=== PATIENT | male | born 1945 | race Caucasian/White ===

== ENCOUNTER 2017-06-15 06:15 | Day surgery (SDC) | payer MEDICARE ==
[2017-06-07 15:47] VITALS: BMI 27.3
--- NOTE | 2017-06-14 15:08 | HP ---
HISTORY AND PHYSICAL DATE OF SURGERY: 06/15/2017 Mu Brewer is a 72-year-old patient seen with progressive left shoulder pain. After treatment options discussed, he elected to proceed with arthroscopy. Consent was obtained. Preoperative medical clearance was provided by Dr. Alva. PAST MEDICAL HISTORY: Hyperlipidemia. PAST SURGICAL HISTORY: Right shoulder arthroscopy. DAILY MEDICATIONS: Lipitor. ALLERGIES: None. SOCIAL HISTORY: Patient denies tobacco use. PHYSICAL EVALUATION: Left shoulder, flexion 150 degrees, abduction 120 degrees, external rotation is 50 degrees with weakness. There is tenderness along the anterolateral acromion and rotator cuff insertion site. Impingement positive at 90 degrees. Distal neurovascular exam is intact. RADIOGRAPHS: Left shoulder reveal a type 2 anterior acromion, evidence for acromioclavicular joint osteoarthritis and cystic changes of the tuberosity. An MRI of the left shoulder revealed a large rotator cuff tear. IMPRESSION: Left shoulder impingement with rotator cuff tear and acromioclavicular joint osteoarthritis. PLAN: 1. Left shoulder arthroscopy with subacromial decompression, probable arthroscopic rotator cuff repair. 2. Probable Kim procedure. 3. Probable biceps tenotomy and debridement. MMODL / IJN: [id number] /
[~2017-06-15 06:15] MED LIST: DEXAMETHASONE SOD PHOSPHATE 10 MG/ML 1 ML VIAL IV ONE; HYDROmorphone 1 MG/ML 1 ML SYRINGE IVP PRN; LACTATED RINGERS 1,000 ML IV SCH; MIDAZOLAM 2 MG/2 ML VIAL IV PRN; ONDANSETRON 4 MG/2 ML VIAL IVP ONE; ceFAZolin 2 GM in SODIUM CHLORIDE 0.9% 100 ML IVPB ONE
[2017-06-15] MEDS ORDERED: LIDOCAINE 1% 20 ML VIAL (10MG/ML) FOR IV START INTRADERMA ONE (06:36)
[2017-06-15 06:45] LABS: Glucose,Whole Blood 131 mg/dL (75-99)
[2017-06-15] MEDS ORDERED: fentaNYL (PF) 50 MCG/ML 2 ML AMP IV ONE (07:30)
[2017-06-15] MEDS ORDERED: LACTATED RINGERS 1,000 ML IV ONE ×2 (07:33→08:45)
--- NOTE | 2017-06-15 07:49 | P.ONQ ---
Anesthesiology Proc Note - PNB - Peripheral Nerve Block Performed Left Interscalene Single Time Out Performed: Yes Indication: Acute Post-Operative Pain, Analgesia Specifically requested for management of pain by DrPenelope: Cortes Spear Sedation Type: Sedate with meaningful contact maintained Preparation: Sterile Prep Position: Supine Catheter: None Needle Types: Other (see comment) (pajunk) Needle Size: 50mm (2") Needle Gauge: 21 Technique: Ultrasound Injectate: Other (see comment) (1% lido, 0.25% ropiv, 20cc) Adjunct: Epinephrine (see comment for dilution ratio) (1:200,000) Blood Aspirated: No Pain Paresthesia on Injection Noted: No Resistance on Injection: Normal Events: Uneventful and Well Tolerated
[2017-06-15] MEDS ORDERED: PROPOFOL 10 MG/ML 20 ML VIAL IV ONE (08:05)
[2017-06-15] MEDS ORDERED: LIDOCAINE 1% INJ 10MG/ML (20 ML MDV) ONE (08:05)
[2017-06-15] MEDS ORDERED: ePHEDrine SULFATE/0.9% NACL/PF 50 MG/5 ML SYRINGE IV ONE (08:05)
[2017-06-15] MEDS ORDERED: PHENYLEPHRINE-0.9% NACL SYG 1 MG/10 ML SYRINGE ONE (08:05)
[2017-06-15] MEDS ORDERED: SUCCINYLCHOLINE CHLORIDE 100 MG/5 ML SYR IV ONE (08:05)
[2017-06-15] MEDS ORDERED: MIDAZOLAM 2 MG/2 ML VIAL ONE (08:05)
[2017-06-15] MEDS ORDERED: fentaNYL (PF) 50 MCG/ML 2 ML AMP ONE (08:05)
--- NOTE | 2017-06-15 11:05 | P.OP ---
Date of Procedure: 06/15/17 Preoperative Diagnosis: Left shoulder impingement with rotator cuff tear Postoperative Diagnosis: 1. Left shoulder large retracted rotator cuff tear 2. Left shoulder impingement 3. Left shoulder acromioclavicular joint osteoarthritis 4. Left shoulder partial long head biceps tendon tear 5. Left shoulder superficial labral tear Procedure(s) Performed: 1. Left shoulder arthroscopic rotator cuff repair 2. Left shoulder arthroscopic subacromial decompression 3. Left shoulder arthroscopic Kim procedure 4. Left shoulder arthroscopic biceps tenotomy 5. Left shoulder arthroscopic debridement labral tear Implants: 6-valeris peek anchors Anesthesia: GETA, regional (Shoulder block) Surgeon: Cortes Spear Online Education Manager #1: Flaco Canales Estimated Blood Loss (ml): 50 Pathology: none sent Condition: stable Disposition: PACU Indications for Procedure: 72-year-old patient seen with progressive left shoulder pain. After treatment options were discussed, he elected to proceed with arthroscopy. Operative Findings: see description of procedure Description of Procedure: Patient underwent a shoulder block by department of anesthesia. The patient was then taken to the operative suite. The patient underwent a general anesthetic by the department of anesthesia. The patient was placed into a lateral position and secured. There was appropriate padding of the bony prominence. Left shoulder was then prepped and draped in normal sterile orthopedic fashion. We placed the extremity in 10 pounds of longitudinal traction. A posterior incision was now made for a posterior working portal site. The trocar and cannula were inserted into the glenohumeral joint. Arthroscopy was initiated. Spinal needle was now inserted anteriorly, to ascertain the anterior working portal site. An incision was now made in that area, a trocar was inserted followed by a probe. There were grade 2/3 chondromalacia changes of the glenoid. There were grade 1, changes of the humeral head. No osteochondral tears were present. Superficial tearing of the anterior/superior labrum was present. Partial tearing long head biceps tendon was noted. There was an obvious massive rotator cuff tear that I could clearly visualized from the glenohumeral side. I performed an arthroscopic biceps tenotomy. I debrided that labral tear down to stable tissue. The residual labrum was probed and found to be stable. Instruments now removed from glenohumeral joint. Utilizing the posterior working portal site, the trocar and cannula were inserted into the subacromial space. Arthroscopy initiated. I made an incision 2 fingerbreadths lateral to the acromion. I introduced my trocar followed by my ArthroCare ablator. I now began ablating thick subacromial bursal tissue, which exposed the undersurface of the anterior acromion. This was diminished subacromial space. There was a very prominent anterior acromion. A motorized bur was introduced and a subacromial decompression was performed. I also excised some osteophytes off the inferior aspect of the distal clavicle. The AC joint was visualized and noted to be fairly arthritic. Our motorized bur was introduced in the anterior portal site and a Kim procedure was performed without difficulty, decompressing the AC joint nicely. I turned my attention to the rotator cuff. There was a massive retracted rotator cuff tear present. It measured about 3.5-4 cm was retracted beyond the glenoid. At this point I debrided the margins. I began freeing up the tendon until I could get over the footprint. I abraded the footprint with a motorized bur. I created 2 additional assessory portal sites off the anterior lateral and posterior lateral acromion. I introduced 3 medial row anchors with 2 sutures each. I now passed all 8 limbs of suture through good bites of rotator cuff tendon. I now crisscrossed the sutures and pull the tendon over the repair site securing it laterally with an additional 3 anchors. All suture limbs were clipped. The repair was probed and found to be stable. We had good compression of the tendon along the entire footprint. I injected 1 mL Allogen intra-articular. Instruments now removed from the portal sites. All portal sites were approximated with nylon suture. Sterile dressings were applied followed by a slingshot immobilizer. Cory MATHIS assisted with the procedure. The patient was awakened, transferred to a bed, and taken to recovery in stable condition.
[2017-06-15 11:13] VITALS: TEMP 96.8
[2017-06-15 12:28] VITALS: BP 122/73; PULSE 73; RESP 16
== END 2017-06-15 12:55 | disposition home or self-care (01) ==
LOC: OR 06:15
PROVIDERS: ATTEND Orthopaedic Surgery
DX: M75.102 Unspecified rotator cuff tear or rupture of left shoulder, not specified as traumatic (principal); M75.42 Impingement syndrome of left shoulder; M19.012 Primary osteoarthritis, left shoulder; S46.112A Strain of muscle, fascia and tendon of long head of biceps, left arm, initial encounter; S43.402A Unspecified sprain of left shoulder joint, initial encounter; X58.XXXA Exposure to other specified factors, initial encounter; M94.28 Chondromalacia, other site; M25.712 Osteophyte, left shoulder; E78.5 Hyperlipidemia, unspecified; I10 Essential (primary) hypertension; E11.9 Type 2 diabetes mellitus without complications; Z79.84 Long term (current) use of oral hypoglycemic drugs; Z79.82 Long term (current) use of aspirin; Z79.899 Other long term (current) drug therapy
CPT/HCPCS: 64415; 84132; 29826; 29827; 29824; C1894; C1713; C1765; J2250; J1100; J0690; J2405; J2001; J3010; J2370; J0330; J2704

== ENCOUNTER → 2019-01-11 | Outpatient (CLI) | payer MEDICARE | END | disposition home or self-care (01) | LOC: LABPAT 14:09 | PROVIDERS: ATTEND Orthopaedic Surgery | DX: Z01.812 Encounter for preprocedural laboratory examination (principal) | CPT/HCPCS: 87070 ==

== ENCOUNTER 2019-01-22 05:46 | Inpatient (IN) | payer MEDICARE ==
--- NOTE | 2019-01-21 12:06 | HP ---
HISTORY AND PHYSICAL REASON FOR ADMISSION: Surgery scheduled for 01/22/2019 Mu Brewer is a 73-year-old patient seen with symptomatic left knee osteoarthritis. After treatment options were discussed, he elected to proceed with left total knee arthroplasty. Consent regarding the procedure was obtained. Medical clearance was provided by Dr. Roach. PAST MEDICAL HISTORY: Hypercholesterolemia. PAST SURGICAL HISTORY: Right shoulder arthroscopy. DAILY MEDICATIONS: None reported. ALLERGIES: NONE KNOWN. SOCIAL HISTORY: Denies current tobacco use. PHYSICAL EXAMINATION: Evaluation of the left knee range of motion is 0 to 120 degrees. There is a mild effusion present. Tenderness along the medial joint line. Crepitus along the medial patellofemoral femoral compartments with range of motion. Pain with patellofemoral compression. Ligaments stable. Hip rotation without pain. Distal neurovascular exam intact. RADIOGRAPHS: Radiographs of the left knee reveal severe medial and moderate patellofemoral compartment osteoarthritis. IMPRESSION: 1. Left knee osteoarthritis. 2. Hyperlipidemia. PLAN: Left total knee arthroplasty. Surgery scheduled for 01/22/2019. MMODL / IJN: [id number] /
[~2019-01-22 05:46] MED LIST changes: -DEXAMETHASONE SOD PHOSPHATE 10 MG/ML 1 ML VIAL IV ONE; -HYDROmorphone 1 MG/ML 1 ML SYRINGE IVP PRN; -LACTATED RINGERS 1,000 ML IV SCH; +LIDOCAINE 1% 20 ML VIAL (10MG/ML) FOR IV START INTRADERMA PRN; +MIDAZOLAM (PF) 2 MG/2 ML VIAL IV PRN; -MIDAZOLAM 2 MG/2 ML VIAL IV PRN; -ONDANSETRON 4 MG/2 ML VIAL IVP ONE; +ONDANSETRON 4 MG/2 ML VIAL IVP PRN; +SCOPOLAMINE 1.5MG/72HR PATCH TRANSDERM ONE; +TRANEXAMIC ACID 1,000 MG in SODIUM CHLORIDE 0.9% 100 ML IVPB ONE; -ceFAZolin 2 GM in SODIUM CHLORIDE 0.9% 100 ML IVPB ONE; +ceFAZolin IN SWFI 2 GM/20 ML SYRINGE IVP ONE; +fentaNYL (PF) 50 MCG/ML 2 ML AMP IV PRN
[2019-01-22] MEDS ORDERED: LIDOCAINE 1% 20 ML VIAL (10MG/ML) FOR IV START INTRADERMA PRN (06:01)
[2019-01-22] MEDS ORDERED: DEXAMETHASONE SOD PHOSPHATE 10 MG/ML 1 ML VIAL IV ONE (06:01)
[2019-01-22] MEDS ORDERED: ONDANSETRON 4 MG/2 ML VIAL IVP ONE (06:01)
[2019-01-22] MEDS ORDERED: fentaNYL (PF) 50 MCG/ML 2 ML AMP IV PRN (06:01)
[2019-01-22] MEDS ORDERED: MIDAZOLAM (PF) 2 MG/2 ML VIAL IV PRN (06:01)
[2019-01-22] MEDS: ACETAMINOPHEN TAB 500 MG TAB PO ONE ×2 (06:20→10:15)
[2019-01-22] MEDS: MELOXICAM 7.5 MG TAB PO ONE ×2 (06:21→10:16)
[2019-01-22 06:44] LABS: Glucose,Whole Blood 139 mg/dL (75-99)
[2019-01-22] MEDS: LACTATED RINGERS 1,000 ML IV SCH ×5 (06:46→16:12)
[2019-01-22] MEDS: ONDANSETRON 4 MG/2 ML VIAL IVP ONE ×2 (07:01→10:14)
[2019-01-22] MEDS: DEXAMETHASONE SOD PHOSPHATE 10 MG/ML 1 ML VIAL IV ONE ×2 (07:01→10:14)
[2019-01-22] MEDS ORDERED: ROPIVACAINE 1,100 MG, SODIUM CHLORIDE 0.9% 500 ML 330 ML MISCELLANE PRN ×2 (07:16)
--- NOTE | 2019-01-22 07:16 | P.ONQ ---
Anesthesiology Proc Note - PNB - Peripheral Nerve Block Performed Left Adductor Canal Infusion Time Out Performed: Yes Procedure Start Time: 06:58 Procedure Stop Time: 07:09 Indication: Acute Post-Operative Pain, Requested by physician (Dr Spear) Sedation Type: Sedate with meaningful contact maintained Preparation: Sterile Dressing Position: Supine Catheter: Indwelling Needle Types: On-Q Needle Size: 50mm (2"), 100mm (4") Needle Gauge: 20 Technique: Ultrasound Injectate: 0.5% Ropivacaine (see comment for volume) (30 mls) Blood Aspirated: No Pain Paresthesia on Injection Noted: No Resistance on Injection: Normal Events: Uneventful and Well Tolerated
[2019-01-22] MEDS ORDERED: TRANEXAMIC ACID 1,000 MG/10 ML VIAL ONE (07:24)
[2019-01-22] MEDS ORDERED: MIDAZOLAM 2 MG/2 ML VIAL ONE (07:24)
[2019-01-22] MEDS ORDERED: fentaNYL (PF) 50 MCG/ML 2 ML AMP ONE (07:24)
[2019-01-22] MEDS ORDERED: SODIUM CHLORIDE 0.9% 100 ML BAG ONE (07:24)
[2019-01-22] MEDS ORDERED: ceFAZolin IN SWFI 2 GM/20 ML SYRINGE IVP ONE (07:31)
[2019-01-22] MEDS ORDERED: ROPIVACAINE 246.25 MG, EPINEPHrine 0.5 MG, KETOROLAC 30 MG, cloNIDine HCL/PF 80 MCG, WA... MISCELLANE ONE ×5 (07:39)
[2019-01-22] MEDS ORDERED: LACTATED RINGERS 1,000 ML IV ONE (07:55)
[2019-01-22] MEDS ORDERED: CLINDAMYCIN 1,800 MG in SODIUM CHLORIDE 0.9% IRRIGATIO 3,000 ML IRRIGATION ONE (08:07)
[2019-01-22] MEDS ORDERED: HYDROmorphone 0.5 MG/0.5 ML SYRINGE IVP PRN ×3 (09:30)
[2019-01-22] MEDS ORDERED: NALOXONE 0.4 MG/ML 1 ML VIAL IV PRN (09:30)
[2019-01-22] MEDS ORDERED: traMADol 50 MG TAB PO PRN (09:30)
[2019-01-22] MEDS ORDERED: Acetaminophen-Codeine 300-30mg TAB PO PRN (09:30)
[2019-01-22] MEDS ORDERED: ONDANSETRON 4 MG/2 ML VIAL IVP PRN (09:30)
--- NOTE | 2019-01-22 09:30 | P.OP ---
Date of Procedure: 01/22/19 Preoperative Diagnosis: Left knee osteoarthritis Postoperative Diagnosis: Left knee osteoarthritis Procedure(s) Performed: Left total knee arthroplasty Implants: 1. Depuy attune size 7 left cruciate-retaining cemented femur 2. Depuy attune size 7 fixed-bearing cemented tibial baseplate 3. Depuy attune size 7 fixed bearing cruciate retaining polyethylene 5 mm tibial insert 4. Depuy attune 41 mm all polyethylene cemented patella Anesthesia: regional (Adductor canal catheter), local, spinal Surgeon: Cortes Spear Commercial Technician #1: Flaco Canales Estimated Blood Loss (ml): 50 Pathology: other (Bone) Condition: stable Disposition: PACU Indications for Procedure: 73-year-old patient seen with symptomatic left knee osteoarthritis. After having treatment options discussed, he elected to proceed with total knee arthro plasty. Operative Findings: See description of procedure Description of Procedure: Patient was taken to the operative suite after having an adductor canal catheter placed by the department of anesthesia for postoperative pain management. Patient underwent a spinal anesthetic by the department of anesthesia. Patient was given preoperative IV intake antibiotics and TXA. A well-padded tourniquet was placed about the left lower extremity. The lower extremity was then prepped and draped in the normal sterile orthopedic fashion. The extremity was elevated, a tourniquet was insufflated to 300. A standard anterior incision was made sharply through skin. Dissection was taken down through the subcutaneous soft tissues down to the extensor mechanism. A medial arthrotomy was performed, patella was everted and knee was flexed. There was advanced osteoarthritis noted. I introduced my distal intramedullary femoral drill. I then introduced the distal femoral cutting jig. Cory MATHIS secured the cutting jig with 2 pins. I held retractors in position while Cory MATHIS performed the distal femoral resection through the guide area we now removed her distal femoral cutting guide. We now placed our 4-in-1 femoral cutting block and positioned and it was secured with 2 pins by Cory MATHIS while I held the block in position. The distal femoral finishing was now completed. A proximal tibial cutting guide was positioned. I held the guide in the appropriate position with both hands well Cory MATHIS inserted stabilizing pins into the guide. Proximal tibial cut was made. We now placed a trial femoral component into position, along with an appropriate size tibial tray and insert. We now took the knee through range of motion and had full extension good flexion and good overall soft tissue balance noted. The patella was everted and stabilized with 2 towel clips held by Cory MATHIS while I performed a flush with patellar quad tendon utilizing a fresh sawblade. We templated the patella, appropriate drill holes were made. An appropriate trial patella was positioned, knee was taken through full range of motion with the patella tracking very nicely. The trial patella was removed. Drill holes were made through the femoral component. All trial components were removed after marking off the appropriate rotation of the tibia. Retractors were now positioned along the proximal tibia. An appropriate keel punch was made with the appropriate size tibial guide by myself on Cory MATHIS assisted by holding retractors. At this point appropriate size implants were chosen and opened. The joint was irrigated copiously with pulse lavage mechanical irrigation. The posterior capsule was infiltrated with local analgesic. The wound was irrigated with pulse lavage mechanical irrigation. We mixed antibiotic methylmethacrylate. We placed the knee into flexion. We placed multiple retractors assisted by Cory MATHIS to expose the proximal tibia. Once the methyl methacrylate was ready, the tibial component was cemented into place removing any excess methylmethacrylate form by both myself and Cory MATHIS. The femoral component was cemented into place removing the removing any excess methylmethacrylate performed by both myself and Cory MATHIS. We then inserted the appropriate size polyethylene tibial insert. We made sure that it was locked into position. We took the knee into full extension, and then back in a flexion making sure we had removed any excess methylmethacrylate. The patellar component was then cemented down and secured with clamp. Excess methylmethacrylate removed. We kept the knee in full extension, patellar clamp in position until methylmethacrylate had hardened. Once it had hardened the patellar clamp was removed. The knee was taken through full range of motion. The patella tracked nicely. There was good soft tissue balancing. The tourniquet was now released. Additional hemostasis was achieved via electrocautery. A second gram of TXA was given. The wound again was irrigated with pulse lavage mechanical irrigation. The superficial soft tissues were infiltrated local analgesic. The extensor mechanism was repaired with Vicryl. We checked the repair with range of motion and it was stable. The subcutaneous soft tissues were repaired with Vicryl in layers. The skin was approximated with pernio/Dermabond. Sterile dressings were applied followed by loose web roll and Ike bandage. The patient was transferred to a bed, and taken to recovery in stable and satisfactory condition. Cory MATHIS assisted with this complex procedure.
--- NOTE | 2019-01-22 10:34 | XR ---
EXAMINATION TYPE: XR knee limited LT DATE OF EXAM: 01/22/2019 CLINICAL HISTORY: Left knee pain and arthritis status post total knee replacement. TECHNIQUE: Portable AP and crosstable lateral views of the left knee are obtained immediately postop eratively. COMPARISON: None FINDINGS: Metallic hardware from total left knee arthroplasty is seen and appears satisfactory in al ignment and position. There is evidence of recent surgery with diffuse subcutaneous gas and soft tis chuck swelling noted. Posterior vascular calcification distal SFA is noted. IMPRESSION: METALLIC HARDWARE FROM TOTAL LEFT KNEE ARTHROPLASTY IS SATISFACTORY IN ALIGNMENT.
[2019-01-22 11:28] VITALS: BMI 27.8
--- NOTE | 2019-01-22 14:31 | P.CONS ---
History of Present Illness - Reason for Consult Consult date: 01/22/19 (Consult from Dr. Spear) medical management Requesting physician: Cortes Spear - Chief Complaint consult for medical management - History of Present Illness The patient is a 73-year-old male with a former history of essential hypertension, hyperlipidemia, prediabetes who is currently postop after having a left total knee arthroplasty secondary to severe left knee osteoarthritis. The patient is doing well postoperatively denies any chest pain or shortness of breath, he does report. Attention incisional pain around his knee but reports that his pain is pretty well controlled at this time he also reports that he has been up and ambulatory with physical therapy walking down the hallway with a walker. The patient denies any nausea vomiting abdominal pain lightheadedness or dizziness. The patient reports former history of hypertension and prediabetes now in remission after having approximately 30 pound weight loss after began a predominantly plant-based diet. The patient reports that he's been off any antihypertensive therapy and metformin for a few years Review of records indicates the patient has hemodynamically stable, he is continued on perioperative antibiotics with cefazolin and is currently receiving a cocktail of Dilaudid, fentanyl, mobic, and tylenol 3's for pain Review of Systems Pertinent positives per HPI all other of systems otherwise negative Past Medical History Past Medical History: Cancer, Diabetes Mellitus, Hyperlipidemia, Hypertension, Osteoarthritis (OA) Additional Past Medical History / Comment(s): Hx of skin CA 5 yrs ago, no longer needs to take BP med or diabetic med since weight loss History of Any Multi-Drug Resistant Organisms: None Reported Past Surgical History: Ear Surgery, Orthopedic Surgery, Tonsillectomy Additional Past Surgical History / Comment(s): L & R shoulder repair ; arthroscopy R knee; benign mass behind R ear Past Anesthesia/Blood Transfusion Reactions: No Reported Reaction Smoking Status: Never smoker - Past Family History Mother Family Medical History: No Reported History Medications and Allergies Home Medications Medication Instructions Recorded Confirmed Type Aspirin [Adult Low Dose Aspirin EC] 81 mg PO DAILY 06/07/17 01/22/19 History Naproxen Sodium [Aleve] 220 mg PO BID PRN 01/12/19 01/22/19 History Rosuvastatin [Crestor] 10 mg PO DAILY 01/12/19 01/22/19 History Allergies Allergy/AdvReac Type Severity Reaction Status Date / Time hydrocodone [From [place]] AdvReac Hallucinati Verified 01/22/19 09:52 ons Physical Exam Vitals: Vital Signs Temp Pulse Pulse Resp BP BP Pulse Ox 01/22/19 12:15 62 128/82 01/22/19 12:00 67 126/83 01/22/19 11:45 61 123/80 01/22/19 11:30 60 118/77 01/22/19 11:15 68 138/75 01/22/19 11:00 65 112/74 01/22/19 10:45 60 109/72 01/22/19 10:30 97.7 F 65 16 127/70 96 01/22/19 10:21 62 16 108/58 98 01/22/19 10:11 113/56 01/22/19 10:08 61 16 96/54 99 01/22/19 09:53 68 16 88/51 96 01/22/19 09:38 97.3 F L 60 18 102/51 95 01/22/19 07:16 63 16 124/76 96 01/22/19 06:29 98.6 F 64 18 148/93 96 Intake and Output 01/21/19 01/22/19 01/22/19 22:59 06:59 14:59 Intake Total 2697 Output Total 200 Balance 2497 Intake: IV 1601 Intake, IV Titration 800 Amount Lactated Ringers 1,000 ml 800 @ 100 mls/hr IV .Q10H REPLACED BY [facility] Rx#:[id number] Oral 296 Output: Urine 150 Estimated Blood Loss 50 Constitutional: No acute distress, conversant, pleasant Eyes: Anicteric sclerae, moist conjunctiva, no lid-lag, PERRLA ENMT: NC/AT,Oropharynx clear, no erythema, exudates Neck:Supple, FROM, no masses, or JVD, No carotid bruits; No thyromegaly Lungs: Clear to auscultation, Clear to percussion, Normal respiratory effort, no accessory muscle use Cardiovascular: Heart regular in rate and rhythm, No murmurs, gallops, or rubs no peripheral edema Abdominal: Soft Nontender, nom distended, no guarding, no rebound or rigidity, Normoactive bowel sounds No hepatomegaly, No splenomegaly, No palpable mass No abdominal wall hernia noted Skin: Normal temperature, tone, texture, turgor, No induration No subcutaneous nodules, No rash, lesions, No ulcers Extremities: Left lower extremity dressed post left knee arthroplasty, neurovascularly intact in bilateral extremities able to wiggle toes Psychiatric: Alert and oriented to person, place and time, Appropriate affect Intact judgement Neuro: Muscles Strength 5/5 in all 4 extremities, Sensation to light touch grossly present throughout, Cranial nerves II-XII grossly intact. No focal sensory deficits Results Labs: Abnormal Lab Results - Last 24 Hours (Table) 01/22/19 Range/Units 06:39 POC Glucose (mg/dL) 139 H (75-99) mg/dL Assessment and Plan (1) Hyperlipidemia Current Visit: Yes Status: Acute Code(s): E78.5 - HYPERLIPIDEMIA, UNSPECIFIED SNOMED Code(s): 92394824 (2) Knee osteoarthritis Current Visit: Yes Status: Acute Code(s): M17.10 - UNILATERAL PRIMARY OSTEOARTHRITIS, UNSPECIFIED KNEE SNOMED Code(s): 309689492 (3) S/P total knee arthroplasty Current Visit: Yes Status: Acute Code(s): Z96.659 - PRESENCE OF UNSPECIFIED ARTIFICIAL KNEE JOINT SNOMED Code(s): 3074546257501 Plan: The patient is admitted to the primary orthopedic service after having a left total knee arthroplasty secondary to severe left knee osteoarthritis, patient is doing well postop [place] and with a stable and is having good pain control at this time. We'll continue to monitor and plan to resume his statin therapy and follow post op labs. We'll defer to primary team for ongoing pain management. I appreciate the opportunity to be involved in ongoing care for this patient, for any further questions or concerns please hesitate to contact us on inpatient team Time with Patient: Greater than 30
[2019-01-22] MEDS: ceFAZolin IN SWFI 2 GM/20 ML SYRINGE IVP SCH ×2 (16:09→23:04)
[2019-01-22] MEDS: ACETAMINOPHEN TAB 325 MG TAB PO PRN ×2 (18:21→23:07)
[2019-01-22] MEDS: ENOXAPARIN 30 MG/0.3 ML SYRINGE SQ SCH (20:26)
[2019-01-22] MEDS ORDERED: SENNOSIDES-DOCUSATE SODIUM 1 EACH TAB PO SCH (21:00)
[2019-01-23] MEDS: LACTATED RINGERS 1,000 ML IV SCH ×3 (00:21→05:12)
--- NOTE | 2019-01-23 05:53 | P.PN ---
Progress Note - Text Progress Note Date: 01/23/19 73 yo male status post left total knee replacement. Patient received adductor c anal catheter. Ropivacaine 0.2% at 8 mls/hr. Patient lying in bed comfortably. VAS score of 2/10, no complains overnight. Assessment and plan: patient will be sent home with the adductor canal pump. Adequate pain control.
[2019-01-23] MEDS: ACETAMINOPHEN TAB 325 MG TAB PO PRN (05:55)
[2019-01-23 07:37] LABS: Basophils % (A) 0 %; Eosinophils % (A) 0 %; HCT 36.2 % (39.0-53.0); HGB 12.1 gm/dL (13.0-17.5); Lymphocytes # (A) 0.8 k/uL (1.0-4.8); Lymphocytes % (A) 10 %; MCH 31.2 pg (25.0-35.0); MCHC 33.3 g/dL (31.0-37.0); MCV 93.6 fL (80.0-100.0); Mean Platelet Volume 7.5; Monocytes # (A) 0.5 k/uL (0-1.0); Monocytes % (A) 6 %; Neutrophils # (A) 6.9 k/uL (1.3-7.7); Neutrophils % (A) 82 %; Platelet Count 217 k/uL (150-450); RBC 3.86 m/uL (4.30-5.90); RDW 12.7 % (11.5-15.5); WBC 8.4 k/uL (3.8-10.6)
[2019-01-23 08:14] VITALS: BP 129/74; PULSE 78; RESP 18; TEMP 97.3
[2019-01-23] MEDS: ENOXAPARIN 30 MG/0.3 ML SYRINGE SQ SCH (08:50)
[2019-01-23] MEDS ORDERED: ATORVASTATIN 20 MG TAB PO SCH (09:00)
[2019-01-23] MEDS ORDERED: MELOXICAM 7.5 MG TAB PO SCH (09:00)
[2019-01-23] MEDS ORDERED: MULTIVITAMINS, THERA 1 EACH TAB PO SCH (09:34)
--- NOTE | 2019-01-23 10:58 | P.PN ---
Subjective Progress Note Date: 01/23/19 Principal diagnosis: Status post left total knee arthroplasty Patient evaluated at bedside. He is resting comfortably, pain is controlled. Patient is ambulating well with therapy. Denies any chest pain, shortness of breath, fever chills, nausea vomiting. Objective - Vital Signs Vital signs: Vital Signs Temp 97.3 F L 01/23/19 07:46 Pulse 78 01/23/19 07:46 Resp 18 01/23/19 07:46 BP 129/74 01/23/19 07:46 Pulse Ox 98 01/23/19 07:46 Intake & Output 01/22/19 01/23/19 01/23/19 18:59 06:59 18:59 Intake Total 2933 340 Output Total 200 Balance 2733 340 Intake: IV 1601 Intake, IV Titration 800 Amount Lactated Ringers 1,000 ml 800 @ 100 mls/hr IV .Q10H [facility] Rx#:[id number] Oral 532 340 Output: Urine 150 Estimated Blood Loss 50 Other: # Voids 1 - Exam Left lower extremity: Incision is clean, dry, and intact. The exofin fusion tape is in good condition. There is minimal soft tissue swelling and ecchymosis surrounding the medial and lateral aspects of the incision. Calf is soft, no tenderness with palpation. Plantar flexion, dorsiflexion, EHL, FHL are intact. Sensory exam to light touch throughout the extremity is intact, dorsal pedis pulses 2+. - Labs CBC & Chem 7: 01/23/19 07:13 Labs: Abnormal Lab Results - Last 24 Hours (Table) 01/23/19 Range/Units 07:13 RBC 3.86 L (4.30-5.90) m/uL Hgb 12.1 L (13.0-17.5) gm/dL Hct 36.2 L (39.0-53.0) % Lymphocytes # 0.8 L (1.0-4.8) k/uL Assessment and Plan Plan: Assessment: Postoperative day #1 status post left total knee arthroplasty Plan: Pain control, plan for discharge on oral medication GI and DVT prophylaxis, aspirin 81 mg twice a day Wound care instructions discussed Home physical therapy and nursing after discharge Medical recommendations Patient will be discharged home today Time with Patient: Less than 30
--- NOTE | 2019-01-23 11:00 | P.DS ---
Providers Date of admission: 01/22/19 05:46 Expected date of discharge: 01/23/19 Attending physician: Cortes Spear Consults: 01/22/19 09:30 Consult Physician Routine Consulting Provider: Aleksandr Colon Consult Reason/Comments: Medical management Do you want consulting provider notified?: Yes Primary care physician: Florencio Roach MD Hospital Course: Date of admission: 01/22/2019 Date of discharge: 01/23/2019 Admission diagnosis: Status post left total knee arthroplasty Discharge diagnosis: Same Attending physician: Dr. Spear Surgical procedures: Left total knee arthroplasty Brief history: Patient is a 73-year-old male with a history of progressive primary left knee osteoarthritis. At this point patient has failed conservative treatment measures and has opted to proceed with a elective left total knee arthroplasty. Hospital course: Details of patient's surgery can be found in operative report. Patient tolerated the procedure well and was subsequently transported to orthopedic floor. Patient's orthopeidc and medical care was provided daily. Patient had daily laboratory tests performed for evaluation of overall blood counts. Patient had daily physical therapy to include strengthening range of motion as well as education with walker ambulation. Patient had daily CPM usage as part of their physical therapy program. Patient was treated with Lovenox for their postoperative DVT prophylaxis during their inpatient stay. Patient was noted to have a relatively uneventful postoperative course. Patient reported satisfactory pain control with oral pain medications by postoperative day 0. Patient showed satisfactory progress with physical therapy. Patient moved steadily through the program and had no difficulty meeting the goals by postoperative day 1. Given patient's otherwise satisfactory course and having met physical therapy goals, plan is to discharge patient home on postoperative day 1. Discharge condition/disposition: Patient will be discharged home in stable condition. Discharge medications: Instructions are given on resumption of patient's normal daily medications per primary care recommendation, in addition patient will be prescribed for 5 mg/325 mg, tramadol 50 mg, Colace 100 milligrams. Discharge instructions: 1. Wound care and infection precautions, keep incision dry and covered while showering, no lotions, creams, moisturizers. No soaking, tubs, pools, hottubs. Do not scrub over the incision. 2. Weight-bear as tolerated with walker / cane until follow-up. 3. Ice and elevate when necessary. Do not exceed 20 minutes per hour with ice pack. 4. Utilize compression sleeve until seen at first follow up appointment. 5. Visiting nursing care. 6. Home physical therapy including home CPM. 7. Pain meds and anticoagulants per prescription. 8. Pain medication has potential to cause constipation. Increase oral fluid and fiber intake. Contact primary care provider if you have not had a bowel movement within 48 hours after discharge 9. No anti-inflammatory medication until discussed at first post operative visit, this including Motrin, Aleve, Mobic, Diclofenac 10. Follow up in office at 2 weeks postop with Cory Canales PA-C 11. Follow up with your primary care doctor 7-10 days after discharge. 12. Contact [facility] with any questions, . Procedures: Left total knee arthroplasty Patient Condition at Discharge: Good Plan - Discharge Summary Discharge Rx Participant: Yes New Discharge Prescriptions: New Aspirin [Adult Low Dose Aspirin EC] 81 mg PO BID #60 tablet. Docusate [Colace] 100 mg PO DAILY #30 capsule Hydrocodone/Acetaminophen [[place] 5-325] 1 each PO Q6HR PRN #28 tab PRN Reason: Pain traMADol HCl [Ultram] 50 mg PO Q6H PRN #28 tab PRN Reason: Pain No Action Naproxen Sodium [Aleve] 220 mg PO BID PRN PRN Reason: Pain Rosuvastatin [Crestor] 10 mg PO DAILY Discharge Medication List Naproxen Sodium [Aleve] 220 mg PO BID PRN 01/12/19 [History] Rosuvastatin [Crestor] 10 mg PO DAILY 01/12/19 [History] Aspirin [Adult Low Dose Aspirin EC] 81 mg PO BID #60 tablet. 01/23/19 [Rx] Docusate [Colace] 100 mg PO DAILY #30 capsule 01/23/19 [Rx] Hydrocodone/Acetaminophen [[place] 5-325] 1 each PO Q6HR PRN #28 tab 01/23/19 [Rx] traMADol HCl [Ultram] 50 mg PO Q6H PRN #28 tab 01/23/19 [Rx] Follow up Appointment(s)/Referral(s): [facility], [NON-STAFF] - As Needed Flaco Canales PAC [PHYSICIAN RECEIVING LEAD] - 2 Weeks Activity/Diet/Wound Care/Special Instructions: Orthopedic Discharge Instructions: 1. Wound care and infection precautions, keep incision dry and covered while showering, no lotions, creams, moisturizers. No soaking, pools, hot tubs. Do not scrub over incision. 2. Weight-bear as tolerated with walker / cane until follow-up. 3. Ice and elevate when necessary. Do not exceed 20 minutes per hour with ice pack. 4. Utilize compression sleeve until seen at first follow up appointment. 5. Pain meds and anticoagulants per prescription. 6. Pain medication has potential to cause constipation. Increase oral fluid and fiber intake. Contact primary care provider if you have not had a bowel movement within 48 hours after discharge. 7. No anti-inflammatory medication until discussed at first post operative visit, this including Motrin, Aleve, Mobic, Diclofenac. 8. Follow up in office at 2 weeks postop with Cory Canales PA-C 9. Follow up with your primary care doctor 7-10 days after discharge. 10. Contact [facility] with any questions, . Discharge Disposition: HOME WITH HOME HEALTH SERVICES
--- NOTE | 2019-01-23 11:04 | P.PN ---
Subjective Progress Note Date: 01/23/19 Patient seen and examined at bedside, sitting up in chair. Reports that he's been up and ambulatory walking with a walker with physical therapy. Reports his pain is well-controlled Objective - Vital Signs Vital signs: Vital Signs Temp 97.3 F L 01/23/19 07:46 Pulse 78 01/23/19 07:46 Resp 18 01/23/19 07:46 BP 129/74 01/23/19 07:46 Pulse Ox 98 01/23/19 07:46 Intake & Output 01/22/19 01/23/19 01/23/19 18:59 06:59 18:59 Intake Total 2933 340 Output Total 200 Balance 2733 340 Intake: IV 1601 Intake, IV Titration 800 Amount Lactated Ringers 1,000 ml 800 @ 100 mls/hr IV .Q10H LINO Rx#:[id number] Oral 532 340 Output: Urine 150 Estimated Blood Loss 50 Other: # Voids 1 - Exam Constitutional: No acute distress, conversant, pleasant Eyes: Anicteric sclerae, moist conjunctiva, no lid-lag, PERRLA ENMT: NC/AT,Oropharynx clear, no erythema, exudates Neck:Supple, FROM, no masses, or JVD, No carotid bruits; No thyromegaly Lungs: Clear to auscultation, Clear to percussion, Normal respiratory effort, no accessory muscle use Cardiovascular: Heart regular in rate and rhythm, No murmurs, gallops, or rubs no peripheral edema Abdominal: Soft Nontender, nom distended, no guarding, no rebound or rigidity, Normoactive bowel sounds No hepatomegaly, No splenomegaly, No palpable mass No abdominal wall hernia noted Skin: Normal temperature, tone, texture, turgor, No induration No subcutaneous nodules, No rash, lesions, No ulcers Extremities: Incision looks fine without any erythema or discharge, dressing clean dry and intact, Psychiatric: Alert and oriented to person, place and time, Appropriate affect Intact judgement Neuro: Muscles Strength 5/5 in all 4 extremities, Sensation to light touch grossly present throughout, Cranial nerves II-XII grossly intact. No focal sensory deficits - Labs CBC & Chem 7: 01/23/19 07:13 Labs: Abnormal Lab Results - Last 24 Hours (Table) 01/23/19 Range/Units 07:13 RBC 3.86 L (4.30-5.90) m/uL Hgb 12.1 L (13.0-17.5) gm/dL Hct 36.2 L (39.0-53.0) % Lymphocytes # 0.8 L (1.0-4.8) k/uL Assessment and Plan (1) Hyperlipidemia Narrative/Plan: * Statin therapy continued Current Visit: Yes Status: Acute Code(s): E78.5 - HYPERLIPIDEMIA, UNSPECIFIED SNOMED Code(s): 92451037 (2) S/P total knee arthroplasty Narrative/Plan: * The patient to follow up with orthopedic service * Defer pain management to primary team Current Visit: Yes Status: Acute Code(s): Z96.659 - PRESENCE OF UNSPECIFIED ARTIFICIAL KNEE JOINT SNOMED Code(s): 8984077400612 (3) Knee osteoarthritis Current Visit: Yes Status: Acute Code(s): M17.10 - UNILATERAL PRIMARY OSTEOARTHRITIS, UNSPECIFIED KNEE SNOMED Code(s): 118221473 Plan: Disposition: Medically speaking patient stable for discharge sign off
== END 2019-01-23 11:42 | disposition home health service (06) | DRG 470 ==
LOC: 2ORMAIN 05:46 → 4SSUR 09:32
PROVIDERS: ADMIT Orthopaedic Surgery; ATTEND Orthopaedic Surgery
PROC: 0SRD0J9 Replacement of Left Knee Joint with Synthetic Substitute, Cemented, Open Approach (ICD-10-PCS; principal; 2019-01-22 07:30)
DX: M17.12 Unilateral primary osteoarthritis, left knee (principal); E78.00 Pure hypercholesterolemia, unspecified; E78.5 Hyperlipidemia, unspecified; E11.9 Type 2 diabetes mellitus without complications; Z79.899 Other long term (current) drug therapy; Z88.5 Allergy status to narcotic agent; Z85.828 Personal history of other malignant neoplasm of skin
CPT/HCPCS: 85025; 88300

== ENCOUNTER 2020-04-30 06:50 | Day surgery (SDC) | payer MEDICARE ==
[2020-04-29 09:10] VITALS: BMI 26.6
[~2020-04-30 06:50] MED LIST changes: +LACTATED RINGERS 1,000 ML IV SCH; -LIDOCAINE 1% 20 ML VIAL (10MG/ML) FOR IV START INTRADERMA PRN; -MIDAZOLAM (PF) 2 MG/2 ML VIAL IV PRN; -ONDANSETRON 4 MG/2 ML VIAL IVP PRN; -SCOPOLAMINE 1.5MG/72HR PATCH TRANSDERM ONE; -TRANEXAMIC ACID 1,000 MG in SODIUM CHLORIDE 0.9% 100 ML IVPB ONE; -ceFAZolin IN SWFI 2 GM/20 ML SYRINGE IVP ONE; -fentaNYL (PF) 50 MCG/ML 2 ML AMP IV PRN
[2020-04-30 07:17] VITALS: RESP 16; TEMP 97.2
[2020-04-30] MEDS ORDERED: LIDOCAINE 1% (10MG/ML) FOR IV START INTRADERMA ONE (07:25)
[2020-04-30] MEDS ORDERED: PROPOFOL 10 MG/ML 20 ML VIAL IV ONE (07:30)
[2020-04-30] MEDS ORDERED: LIDOCAINE 1% INJ 10MG/ML (20 ML MDV) ONE (07:30)
[2020-04-30 07:37] LABS: Glucose,Whole Blood 123 mg/dL (75-99)
--- NOTE | 2020-04-30 07:53 | P.PCN ---
Date of Procedure: 04/30/20 Procedure(s) Performed: BRIEF HISTORY: Patient is a 75-year-old pleasant male scheduled for an elective colonoscopy as a part of evaluation of prior history of colon polyps. Last colonoscopy was 5 years ago. PROCEDURE PERFORMED: Colonoscopy. PREOPERATIVE DIAGNOSIS: History of colon polyps. IV sedation per Anesthesia. PROCEDURE: After informed consent was obtained, the patient, was brought into the endoscopy unit. IV sedation was administered by Anesthesia under continuous monitoring. Digital rectal examination was normal. Initially the Olympus CF-160 flexible video colonoscope was then inserted in the rectum, gradually advanced into the cecum without any difficulty. Careful examination was performed as the scope was gradually being withdrawn. Ileocecal valve and the appendiceal orifice were visualized and appeared normal. Prep was excellent. Mucosa of the cecum, ascending colon, transverse colon, descending colon, sigmoid colon, and rectum appeared normal. Scattered sigmoid diverticulosis. Retroflexion was performed in the rectum and no lesions were seen. The patient tolerated the procedure well. IMPRESSION: Normal-appearing colon from rectum to cecum with no evidence of colorectal neoplasia. Scattered sigmoid diverticulosis. RECOMMENDATIONS: Findings of this examination were discussed with the patient as well as his family. He was advised to have a repeat surveillance colonoscopy in 5 years from now because of the prior history of colon polyps.
[2020-04-30] MEDS ORDERED: IV FLUID CONTINUATION 500 ML IV ONE (07:55)
[2020-04-30 08:09] VITALS: BP 137/74; PULSE 63
== END 2020-04-30 08:44 | disposition home or self-care (01) ==
LOC: ORWHC2ENDO 06:50
PROVIDERS: ATTEND Internal Medicine Gastroenterology
DX: Z12.11 Encounter for screening for malignant neoplasm of colon (principal); K57.30 Diverticulosis of large intestine without perforation or abscess without bleeding; E78.5 Hyperlipidemia, unspecified; Z86.010 Personal history of colon polyps; Z79.899 Other long term (current) drug therapy; Z79.82 Long term (current) use of aspirin; Z88.5 Allergy status to narcotic agent; Z96.652 Presence of left artificial knee joint; Z98.890 Other specified postprocedural states; Z87.39 Personal history of other diseases of the musculoskeletal system and connective tissue
CPT/HCPCS: J2001; J2704; G0105